=== PATIENT | male | born 1985 | race African-American/Black ===

== ENCOUNTER 2025-06-19 12:07 | Emergency (ER) | payer BC ==
[~2025-06-19] VITALS: Ht 180.3 cm; Wt 106.6 kg
[2025-06-19 12:14] VITALS: BP 179/103
[2025-06-19 12:43] LABS: PLATELET COUNT (AUTO) 356 K/uL (152-348); RED BLOOD CELL COUNT(AUTO) 4.67 MIL/uL (4.06-5.63); RED CELL DISTRIBUTION WIDTH 14.6 % (12.1-16.2); WHITE BLOOD COUNT (AUTO) 8.8 K/uL (3.6-10.2)
[2025-06-19 12:45] LABS: CREATININE 1.0 mg/dL (0.6-1.3); SODIUM SERUM 142 mmol/L (136-145); UREA NITROGEN, BLOOD 12 mg/dL (7-18)
[2025-06-19 12:50] LABS: ASPARTATE AMINOTRANSFERASE 35 U/L (15-37); TOTAL PROTEIN, SERUM 7.7 g/dL (6.4-8.2)
[2025-06-19] MEDS ORDERED: AMLO-915 PO (13:32)
[2025-06-19] MEDS ORDERED: LOSA100T32 PO (13:32)
[2025-06-19 14:00] VITALS: BP 159/101; TEMP 98.3; O2SAT 95
== END 2025-06-19 14:02 | disposition home or self-care (01) ==
LOC: ER 12:07
DX: I10 Essential (primary) hypertension (principal); R06.02 Shortness of breath; Z86.2 Personal history of diseases of the blood and blood-forming organs and certain disorders involving the immune mechanism
CPT/HCPCS: 36415; 84484; 85025; 85730; A4606; A4663